=== PATIENT | female | born 1995 | race African-American/Black ===

== ENCOUNTER 2018-11-21 19:19 | Emergency (ER) | payer SELFPAY ==
[~2018-11-21] VITALS: Ht 154.9 cm; Wt 69.0 kg
[2018-11-21] MEDS ORDERED: FAMOTIDINE 20MG TABLET PO ONE (23:15)
[2018-11-21] MEDS ORDERED: ONDANSETRON 4MG ODT PO ONE (23:15)
[2018-11-21] MEDS ORDERED: KETOROLAC 60MG/2ML VIAL IM ONE (23:15)
[2018-11-21 23:30] LABS: CLARITY URINE CLOUDY (CLEAR); COLOR URINE YELLOW (YELLOW); KETONES URINE 4+ (NEGATIVE); LEUKOCYTE ESTERASE URINE 1+ (NEGATIVE); NITRITE URINE NEGATIVE (NEGATIVE); OCCULT BLOOD URINE 3+ (NEGATIVE); PH URINE 7.5 (4.5-8.0); PROTEIN URINE 1+ (NEGATIVE); SPECIFIC GRAVITY URINE 1.029 (1.005-1.030); UROBILINOGEN URINE 0.2 E.U./dL (0.2-1.0)
[2018-11-21 23:47] VITALS: BP 115/67
== END 2018-11-22 01:32 | disposition home or self-care (01) ==
LOC: ER 19:53
DX: R10.30 Lower abdominal pain, unspecified (principal); R11.10 Vomiting, unspecified; F12.10 Cannabis abuse, uncomplicated; Z87.828 Personal history of other (healed) physical injury and trauma
CPT/HCPCS: 81003; 81025; 87086; 96372; 99283; J1885; Q0162

== ENCOUNTER 2019-04-20 02:34 | Emergency (ER) | payer MEDICAID ==
[~2019-04-20] VITALS: Ht 154.9 cm; Wt 64.0 kg
[2019-04-20 05:28] VITALS: BP 117/69
== END 2019-04-20 10:57 | disposition left against medical advice (07) ==
LOC: ER 02:34
DX: Z53.21 Procedure and treatment not carried out due to patient leaving prior to being seen by health care provider (principal)

== ENCOUNTER 2024-04-23 07:58 | Emergency (ER) | payer MEDICAID ==
[~2024-04-23] VITALS: Ht 160 cm; Wt 65.0 kg
[2024-04-23 08:00] VITALS: O2SAT 99
[2024-04-23 08:11] VITALS: BP 118/62; PULSE 89; RESP 18; O2SAT 98
[2024-04-23] MEDS ORDERED: AMOX1TAB16 MT (08:25)
[2024-04-23 08:35] VITALS: TEMP 98.1
[2024-04-23] MEDS: ACETAMINOPHEN 325MG TABLET PO ONE (08:35)
== END 2024-04-23 08:47 | disposition home or self-care (01) ==
LOC: ER 07:58
DX: K04.7 Periapical abscess without sinus (principal); K02.9 Dental caries, unspecified; F12.90 Cannabis use, unspecified, uncomplicated; Z98.890 Other specified postprocedural states
CPT/HCPCS: 99283